=== PATIENT | female | born 1995 | race Caucasian/White ===

== ENCOUNTER 2018-06-20 12:44 | Emergency (ER) | payer MEDICAID ==
[~2018-06-20] VITALS: Ht 157.5 cm; Wt 62.6 kg
[2018-06-20] MEDS ORDERED: predniSONE 20 MG TABLET ONE (12:57)
[2018-06-20] MEDS ORDERED: IPRATROPIUM NEB FS 0.5 MG/2.5 ML AMPUL.NEB ONE (12:58)
[2018-06-20] MEDS ORDERED: ALBUTEROL FS 2.5 MG/3 ML VIAL.NEB ONE (12:58)
[2018-06-20] MEDS ORDERED: IPRATROPIUM NEB FS 0.5 MG/2.5 ML AMPUL.NEB NEB ONE (13:00)
[2018-06-20] MEDS ORDERED: ALBUTEROL FS 2.5 MG/3 ML VIAL.NEB NEB ONE (13:00)
[2018-06-20] MEDS ORDERED: predniSONE 20 MG TABLET PO ONE (13:00)
--- NOTE | 2018-06-20 13:05 | NUR ---
RN NOTES ASSESSED ON BED , C/O SOB FOR 4 DAYS , VSS STABLE, O2 SAT 97%, ER MD AT THE BEDSIDE, KEPT PT COMFORTABLE, AWILDA DAVIS RECEIVED . CONTINUE TO [facility] .
--- NOTE | 2018-06-20 14:31 | NUR ---
Patient discharged to home in stable condition. Written and verbal after care instructions given. Patient verbalizes understanding of instruction.
[2018-06-20 14:32] VITALS: BP 110/61
== END 2018-06-20 14:34 | disposition home or self-care (01) ==
LOC: ER 12:46
DX: J20.9 Acute bronchitis, unspecified (principal); F41.9 Anxiety disorder, unspecified; F90.9 Attention-deficit hyperactivity disorder, unspecified type
CPT/HCPCS: 71045-TC